=== PATIENT | female | born 1960 | race Caucasian/White ===

== ENCOUNTER 2019-11-24 11:50 | Emergency (ER) | payer MEDICAID ==
--- NOTE | 2019-11-24 12:40 | ERPHSYRPT ---
- History of Present Illness Time Seen by Provider: 11/24/19 12:35 Source: patient Exam Limitations: no limitations Patient Subjective Stated Complaint: Ankle injury/pain Triage Nursing Assessment: Patient broguht back to ED via w/c and transferred to bed per self. Patient A+O X3. Patient's skin pink, warm and dry. Patient complains of right outer ankle pain after falling off of her boat trailer yesterday evening. Patient states pain is constant throbbing with intermittent stabbing 8/10. Patient unable to bear weight. Right outer ankle noted to be swollen. Pulses noted. Physician History: Ankle injury/pain right. Patient complains of right outer ankle pain after falling off of her boat trailer yesterday evening. Patient states pain is constant throbbing with intermittent stabbing 8/10. Patient unable to bear weight. Right outer ankle noted to be swollen. Pulses noted. Method of Injury: fell, twisted Occurred: yesterday Quality: constant Severity of Pain-Max: moderate Severity of Pain-Current: moderate Lower Extremities Pain: foot: right, ankle: right Modifying Factors: Improves With: cold therapy Associated Symptoms: unable to bear weight Allergies/Adverse Reactions: No Known Drug Allergies Allergy (Unverified 11/24/19 12:04) Hx Influenza Vaccination/Date Given: Yes Hx Pneumococcal Vaccination/Date Given: No Immunizations Up to Date: Yes Travel Risk - International Travel Have you traveled outside of the country in past 3 weeks: No - Coronavirus Screening Are you exhibiting any of the following symptoms?: No Close contact with a COVID-19 positive Pt in past 14-21 Days: No - Review of Systems Constitutional: No Symptoms Eyes: No Symptoms Ears, Nose, & Throat: No Symptoms Respiratory: No Symptoms Cardiac: No Symptoms Abdominal/Gastrointestinal: No Symptoms Genitourinary Symptoms: No Symptoms Skin: No Symptoms Neurological: No Symptoms - Past Medical History Pertinent Past Medical History: No Neurological History: No Pertinent History ENT History: No Pertinent History Cardiac History: No Pertinent History Respiratory History: No Pertinent History Endocrine Medical History: No Pertinent History Musculoskeletal History: No Pertinent History GI Medical History: No Pertinent History History: No Pertinent History Psycho-Social History: No Pertinent History Female Reproductive Disorders: No Pertinent History - Past Surgical History Past Surgical History: No Neuro Surgical History: No Pertinent History Cardiac: No Pertinent History Respiratory: No Pertinent History Gastrointestinal: No Pertinent History Genitourinary: No Pertinent History Musculoskeletal: No Pertinent History Female Surgical History: No Pertinent History - Social History Smoking Status: Current some day smoker How long have you smoked: years Exposure to second hand smoke: No Drug Use: none Patient Lives Alone: No - Female History Hx Now: No - Nursing Vital Signs Nursing Vital Signs: Initial Vital Signs Temperature 98.0 F 11/24/19 12:05 Pulse Rate 56 L 11/24/19 12:05 Respiratory Rate 18 11/24/19 12:05 Blood Pressure 127/65 11/24/19 12:05 O2 Sat by Pulse Oximetry 99 11/24/19 12:05 Pain Scale Pain Intensity 8 - Physical Exam General Appearance: no apparent distress Eyes, Ears, Nose, Throat Exam: normal ENT inspection Neck Exam: normal inspection Cardiovascular/Respiratory Exam: chest non-tender Gastrointestinal/Abdominal Exam: non-tender Ankle Exam: right ankle: limited range of motion, pain, soft tissue tenderness Foot Exam: right foot: limited range of motion, pain, soft tissue tenderness, swelling SpO2: 99 - Course Nursing assessment & vital signs reviewed: Yes - Radiology Exams Foot X-ray Interpretation: Reviewed by me, Negative, No Fracture Ankle X-ray Interpretation: Reviewed by me, Negative Ordered Tests: Active Orders 24 hr Category Date Time Status ANKLE (3 VIEWS) Stat Exams 11/24/19 12:31 Taken FOOT (2 VIEWS) Stat Exams 11/24/19 12:31 Taken - Progress Progress: improved, pain not gone completely Counseled pt/family regarding: diagnosis, need for follow-up, rad results - Departure Departure Disposition: Home Clinical Impression: High ankle sprain of right lower extremity Qualifiers: Encounter type: initial encounter Qualified Code(s): S93.491A - Sprain of other ligament of right ankle, initial encounter Condition: Stable Critical Care Time: No Referrals: ISAEL BRAND [ACTIVE STAFF] [id number] Instructions: Foot Sprain (DC) Prescriptions: Naproxen 375 mg [Naprosyn 375 mg] 375 mg PO Q8H #30 tablet
[2019-11-24 13:08] VITALS: BP 133/64; PULSE 63; O2SAT 100
--- NOTE | 2019-11-24 19:58 | XRAY ---
Indication: Pain following injury. Comparison: None 3 view right ankle demonstrates lateral soft tissue swelling. No other bony, articular, or soft tissue abnormalities.
--- NOTE | 2019-11-24 20:00 | XRAY ---
Indication: Pain following injury. Comparison: None 3 nonweightbearing views right foot obtained. No bony, articular, or soft tissue abnormalities.
== END 2019-11-24 13:09 | disposition home or self-care (01) ==
LOC: ED 11:50
DX: S93.491A Sprain of other ligament of right ankle, initial encounter (principal); X50.0XXA Overexertion from strenuous movement or load, initial encounter; W17.89XA Other fall from one level to another, initial encounter
CPT/HCPCS: 73610; 73620; 99283